=== PATIENT | female | born 1965 | race Caucasian/White ===

== ENCOUNTER 2018-12-23 18:40 | Emergency (ER) | payer MEDICAID, OTHER ==
[~2018-12-23] VITALS: Ht 165.1 cm; Wt 82.7 kg
[~2018-12-23 18:40] MED LIST: ACYC-114 PO; ASPI81TA50 PO; BUPR300T4 PO; DIAZ5TAB PO; ESTR1TAB7 PO; FEXO-64 PO; HYDR-3307 PO; METH750T87 PO; VITAMINS PO
[2018-12-23 18:43] VITALS: BP 118/78
== END 2018-12-23 20:26 | disposition home or self-care (01) ==
LOC: ED 19:42
DX: S93.402A Sprain of unspecified ligament of left ankle, initial encounter (principal); W01.0XXA Fall on same level from slipping, tripping and stumbling without subsequent striking against object, initial encounter; Y93.89 Activity, other specified; Y92.410 Unspecified street and highway as the place of occurrence of the external cause; Y99.8 Other external cause status
CPT/HCPCS: 29515; 99283

== ENCOUNTER → 2020-03-12 | Outpatient (CLI) | payer MEDICAID ==
[~2020-03-12] MED LIST changes: -BUPR300T4 PO; +BUPR300T94 PO; -HYDR-3307 PO; +HYDR-36 PO
== END | disposition home or self-care (01) ==
LOC: CFH 07:04
PROVIDERS: ATTEND Internal Medicine Cardiovascular Disease
DX: I36.1 Nonrheumatic tricuspid (valve) insufficiency (principal)
CPT/HCPCS: 93306

== ENCOUNTER → 2020-03-16 | Outpatient (CLI) | payer MEDICAID | END | disposition home or self-care (01) | LOC: CFH 11:45 | PROVIDERS: ATTEND Internal Medicine Cardiovascular Disease | DX: R07.89 Other chest pain (principal); R94.31 Abnormal electrocardiogram [ECG] [EKG] | CPT/HCPCS: 78452; 93017; A9502 ==

== ENCOUNTER 2020-06-22 17:32 | Emergency (ER) | payer MEDICAID ==
[~2020-06-22] VITALS: Ht 167.6 cm; Wt 70.0 kg
[~2020-06-22 17:32] MED LIST changes: +HYDR-3246 PO; -HYDR-36 PO
--- NOTE | 2020-06-22 17:49 | NUR ---
safety precautions in place.
[2020-06-22 18:16] LABS: BASOPHILS # (AUTO) 0.04 x10^3/uL (0-0.1); BASOPHILS % (AUTO) 1 % (0-1); EOSINOPHILS # (AUTO) 0.16 x10^3/uL (0-0.4); EOSINOPHILS % (AUTO) 2 % (1-7); LYMPHOCYTES # (AUTO) 3.58 x10^3/uL (1-3.4); LYMPHOCYTES % (AUTO) 40 % (22-44); MD NO; MEAN CORPUSCULAR HEMOGLOBIN 30.8 pg (27.0-34.8); MEAN CORPUSCULAR HGB CONC 32.7 g/dL (32.4-35.8); MEAN CORPUSCULAR VOLUME 94.1 fL (80-100); MEAN PLATELET VOLUME 7.6 fL (7.4-10.4); MONOCYTES # (AUTO) 0.58 x10^3/uL (0.2-0.8); MONOCYTES % (AUTO) 6 % (2-9); NEUTROPHILS # (AUTO) 4.64 x10^3/uL (1.8-6.8); NEUTROPHILS % (AUTO) 52 % (42-75); PLATELET COUNT 331 x10^3/uL (130-400); RED BLOOD COUNT 4.39 x10^6/uL (3.82-5.3); RED CELL DISTRIBUTION WIDTH 14.5 % (9.6-15.2)
[2020-06-22 18:26] LABS: ALBUMIN 3.6 g/dL (3.4-5.0); ANION GAP 7 mmol/L (5-15); CALCIUM 8.5 mg/dL (8.5-10.1); CHLORIDE 114 mmol/L (98-107)
[2020-06-22 18:27] LABS: SALICYLATE LEVEL < 1.7 mg/dL (2.8-20.0)
[2020-06-22 18:31] LABS: ALANINE AMINOTRANSFERASE 44 U/L (12-78); ALKALINE PHOSPHATASE 80 U/L (45-117); BILIRUBIN,TOTAL 0.4 mg/dL (0.2-1.0); TOTAL PROTEIN 7.1 g/dL (6.4-8.2)
[2020-06-22 18:56] VITALS: BP 117/79
--- NOTE | 2020-06-22 18:57 | NUR ---
bedside report from Cami RAMIREZ. pt care transferred at this time. Pt sitting up in gurney, eating meal tray, even and unlabored respirations, sitter in line of sight, SI precautions inplace. P/W/D. WCTM. waiting for eval.
[2020-06-22 19:13] LABS: AMPHETAMINE SCREEN, URINE Negative (Negative); BARBITURATE SCREEN, URINE Negative (Negative); BENZODIAZEPINE SCREEN, URINE Negative (Negative); CANNABINOID SCREEN, URINE Positive (Negative); COCAINE SCREEN, URINE Negative (Negative); METHADONE SCREEN, URINE Negative (Negative); OPIATE SCREEN, URINE Negative (Negative)
--- NOTE | 2020-06-22 19:30 | NUR ---
LATE ENTRY: RN TO PT BS FOR UPDATE ON POC AND SET UP TELE PSYCH. PT NAD, LAYING DOWN. SITTER IN LINE OF SIGHT. DENIES ADDITIONAL NEEDS AT THIS TIME. WCTM. SI PRECAUTIONS IN PLACE. WAITING FOR TELE EVAL.
--- NOTE | 2020-06-22 20:12 | NUR ---
RN TO PT BS FOR UPDATE ON POC. PT NAD, LAYING DOWN, GIVEN PILLOW FOR COMFORT. SITTER IN LINE OF SIGHT. DENIES ADDITIONAL NEEDS AT THIS TIME. WCTM. SI PRECAUTIONS IN PLACE. WAITING FOR TELE EVAL.
--- NOTE | 2020-06-22 20:46 | NUR ---
PT RESTING IN GURNEY, EYES CLOSED, LIGHTS DIMMED FOR COMFORT. NAD, SITTER IN LINE OF SIGHT, NO CHANGE IN CONDITION. SI PRECAUTIONS IN PLACE. WCTM. WAITING FOR TELE PSYCH CONSULT.
--- NOTE | 2020-06-22 20:48 | NUR ---
Throughput: Packet faxed to [facility], Dillon Peterson, Senior Wolf, and [facility]. [facility] denied due to insurance.
--- NOTE | 2020-06-22 21:29 | NUR ---
PT RESTING IN GURNEY, NAD, EVEN AND BILATERAL CHEST RISE AND FALL, P/W/D, SITTER IN LINE OF SIGHT. WCTM.
--- NOTE | 2020-06-22 21:36 | NUR ---
[facility] CALLED RN REGARDING PT. PT POSSIBLE TRANSFER TO THEIR FACILITY. [facility]
--- NOTE | 2020-06-22 21:47 | NUR ---
mt: [facility] accepted patient for [id number]. Dr. Stephenson will be accepting doctor.
--- NOTE | 2020-06-22 22:25 | NUR ---
PT RESTING ON SIDE IN GURINGLESIDE, NAD, EYES CLOSED, RESP EVEN AND UNLABORED, NAD, SITTER IN LINE OF SIGHT, WCTM. PT TO BE TRANSFERRED TO [facility].
--- NOTE | 2020-06-22 22:53 | NUR ---
PT UPDATED ON POC AND THAT SHE WILL BE GOING TO [facility]. PT NAD, APPEARS FRUSTRATED THAT SHE IS GETTING TRANSFERRED. SITTER IN LINE OF SIGHT. WCTM.
--- NOTE | 2020-06-22 23:12 | NUR ---
[facility] TO [facility] PT TO TRANSFER TO [facility]. TANA, MA[facility], PT AGGITATED WHEN [facility] WENT TO TAKE PT TO [facility]. VSS, P/W/D. 11/12 BAGS SENT WITH [facility], PT GIVEN HOSPITAL SOCKS FOR TRANSPORT.
== END 2020-06-22 23:16 ==
LOC: ED 18:22
DX: R45.851 Suicidal ideations (principal); F33.9 Major depressive disorder, recurrent, unspecified
CPT/HCPCS: 36415; 80053; 80307; 84703; 85025; 99285

== ENCOUNTER 2020-11-21 09:27 | Emergency (ER) | payer MEDICAID ==
[~2020-11-21] VITALS: Ht 165.1 cm; Wt 84.1 kg
[2020-11-21 09:30] VITALS: BP 121/53
== END 2020-11-21 11:27 | disposition home or self-care (01) ==
LOC: ED 09:50
DX: M25.561 Pain in right knee (principal)
CPT/HCPCS: 93970; 99284

== ENCOUNTER 2021-05-27 13:21 | Emergency (ER) | payer MEDICAID ==
[~2021-05-27] VITALS: Ht 162.6 cm; Wt 85.5 kg
[~2021-05-27 13:21] MED LIST changes: -ACYC-114 PO; +ACYC-40 PO; -HYDR-3246 PO; +HYDR-3248 PO
--- NOTE | 2021-05-27 13:47 | NUR ---
Pt with right flank/pain pt believes pain maybe related to "fatty tumor". PA-C at bedside.
--- NOTE | 2021-05-27 13:56 | NUR ---
Requested urine sample, pt walked to bathroom.
[2021-05-27 14:16] LABS: BASOPHILS % (AUTO) 1 % (0-1); EOSINOPHILS % (AUTO) 2 % (1-7); LYMPHOCYTES % (AUTO) 37 % (22-44); MEAN CORPUSCULAR HEMOGLOBIN 31.5 pg (27.0-34.8); MEAN CORPUSCULAR HGB CONC 34.2 g/dL (32.4-35.8); MEAN PLATELET VOLUME 7.1 fL (7.4-10.4); MONOCYTES % (AUTO) 6 % (2-9); NEUTROPHILS % (AUTO) 55 % (42-75); PLATELET COUNT 308 x10^3/uL (130-400); RED BLOOD COUNT 4.19 x10^6/uL (3.82-5.3); RED CELL DISTRIBUTION WIDTH 13.9 % (9.6-15.2)
[2021-05-27 14:17] LABS: MICROSCOPIC AUTO
[2021-05-27 14:29] LABS: ALANINE AMINOTRANSFERASE 30 U/L (12-78); ALBUMIN 3.5 g/dL (3.4-5.0); ANION GAP 2 mmol/L (5-15); CALCIUM 9.4 mg/dL (8.5-10.1); CHLORIDE 105 mmol/L (98-107); CREATININE 0.79 mg/dL (0.55-1.02)
[2021-05-27 14:31] LABS: ALKALINE PHOSPHATASE 99 U/L (45-117); BILIRUBIN,TOTAL 0.3 mg/dL (0.2-1.0); TOTAL PROTEIN 7.1 g/dL (6.4-8.2)
[2021-05-27] MEDS ORDERED: KETOROLAC 30 MG/1 ML ONE (14:51)
[2021-05-27] MEDS ORDERED: KETOROLAC 30 MG/1 ML IM ONE (15:00)
[2021-05-27 15:10] VITALS: BP 135/71
== END 2021-05-27 15:11 | disposition home or self-care (01) ==
LOC: ED 14:47
DX: S29.012A Strain of muscle and tendon of back wall of thorax, initial encounter (principal); X58.XXXA Exposure to other specified factors, initial encounter; Y93.89 Activity, other specified; Y92.89 Other specified places as the place of occurrence of the external cause; Y99.8 Other external cause status
CPT/HCPCS: 36415; 80053; 81001; 85025; 87086; 96372; 99283; J1885

== ENCOUNTER 2021-08-08 08:52 | Emergency (ER) | payer MEDICAID ==
[~2021-08-08] VITALS: Ht 165.1 cm; Wt 86.6 kg
[2021-08-08 08:58] VITALS: BP 125/68
== END 2021-08-08 10:26 | disposition home or self-care (01) ==
LOC: ED 09:03
DX: S61.011A Laceration without foreign body of right thumb without damage to nail, initial encounter (principal); W26.9XXA Contact with unspecified sharp object(s), initial encounter; Y93.89 Activity, other specified; Y92.89 Other specified places as the place of occurrence of the external cause; Y99.8 Other external cause status
CPT/HCPCS: 99283